=== PATIENT | female | born 1995 | race Two or more races ===

== ENCOUNTER 2024-05-16 12:36 | Outpatient (CLI) | payer OTHER ==
[~2024-05-16 12:36] MED LIST: FOLIC ACID0.4 MG PO; PRENATAL + DHA1 EAC1
== END 2024-05-16 12:37 | disposition home or self-care (01) ==
LOC: PRENATAL 12:36
PROVIDERS: ATTEND Obstetrics & Gynecology Maternal & Fetal Medicine
DX: O35.9XX0 Maternal care for (suspected) fetal abnormality and damage, unspecified, not applicable or unspecified (principal); O35.3XX0 Maternal care for (suspected) damage to fetus from viral disease in mother, not applicable or unspecified; O44.02 Complete placenta previa NOS or without hemorrhage, second trimester; Z3A.20 20 weeks gestation of pregnancy

== ENCOUNTER 2024-07-11 09:38 | Outpatient (CLI) | payer OTHER | END 2024-07-11 09:40 | disposition home or self-care (01) | LOC: PRENATAL 09:38 | PROVIDERS: ATTEND Obstetrics & Gynecology Maternal & Fetal Medicine | DX: O26.849 Uterine size-date discrepancy, unspecified trimester (principal); O44.00 Complete placenta previa NOS or without hemorrhage, unspecified trimester; Z3A.28 28 weeks gestation of pregnancy ==

== ENCOUNTER 2024-08-21 09:39 | Outpatient (CLI) | payer OTHER | END 2024-08-21 09:41 | disposition home or self-care (01) | LOC: PRENATAL 09:39 | PROVIDERS: ATTEND Obstetrics & Gynecology Maternal & Fetal Medicine | DX: O26.849 Uterine size-date discrepancy, unspecified trimester (principal); O36.8199 Decreased fetal movements, unspecified trimester, other fetus; Z3A.34 34 weeks gestation of pregnancy ==

== ENCOUNTER 2024-09-06 14:48 | Outpatient (CLI) | payer OTHER | END 2024-09-06 14:49 | disposition home or self-care (01) | LOC: PRENATAL 14:48 | PROVIDERS: ATTEND Obstetrics & Gynecology Maternal & Fetal Medicine | DX: O26.849 Uterine size-date discrepancy, unspecified trimester (principal); O36.8199 Decreased fetal movements, unspecified trimester, other fetus; Z3A.36 36 weeks gestation of pregnancy ==

== ENCOUNTER 2024-09-19 13:15 | Inpatient (IN) | payer OTHER ==
[~2024-09-19] VITALS: Ht 152.4 cm; Wt 83.0 kg
[2024-09-27] VITALS (10 sets, daily range): BP systolic 113–134; BP diastolic 45–79
[2024-09-27 13:58] LABS: HEMATOCRIT 37.7 % (36.0-45.00); HEMOGLOBIN 12.9 g/dL (12.0-15.00); MEAN CELL VOLUME 97.8 fL (80.00-100.00); MEAN CORPUSCULAR HEMOGLOBIN 33.5 pg (27.00-32.0); MEAN CORPUSCULAR HGB CONC 34.3 g/dl (32.0-36.0); PLATELET COUNT 343 K/uL (150-450); RED BLOOD COUNT 3.85 M/uL (4.00-6.00); RED CELL DISTRIBUTION WIDTH 12.4 % (11.5-14.5)
[2024-09-27 13:59] LABS: PH,URINE 5.5 (5.0-8.0); URINE APPEARANCE Clear; URINE BILIRRUBIN Negative (NEGATIVE); URINE BLOOD Trace; URINE COLOR Dark Yellow; URINE GLUCOSE Negative (NEGATIVE); URINE LEUKOCYTE Trace; URINE NITRATE Negative; URINE PROTEIN Trace (NEGATIVE)
[2024-09-27 14:00] LABS: URINE BACTERIA 737.9 uL (0.0-1933); URINE EPITHELIAL CELLS 28.9 uL (0.0-38.8); URINE RBC 6.6 uL (0.0-20.8); URINE WBC 18.1 uL (0.0-23.2)
[2024-09-27 14:12] LABS: URINE CAST 0.58 uL (0.0-1.40); URINE KETONE 80 (NEGATIVE)
[2024-09-27 14:14] LABS: URINE EPITHELIAL CELLS 0-4 /HPF
[2024-09-27] MEDS ORDERED: RINGERS SOLUTION,LACTATED 1,000 ML IV SCH (14:15)
[2024-09-27 14:21] LABS: INR 0.94; PARTIAL THROMBOPLASTIN TIME 29.7 SECONDS (22.0-34.0); PROTHROMBIN TIME 10.3 SECONDS (9.0-11.5)
[2024-09-27 14:36] LABS: ALBUMIN 3.3 gm/dL (3.4-5.0); BILIRUBIN TOTAL 0.91 mg/dL (0.3-1.2); CALCIUM 9.9 mg/dL (8.5-10.1); CREATININE SERUM 0.62 mg/dL (0.55-1.02); GFR 113.8; GLOBULINA 4.2 G/DL (2.4-3.5); POTASSIUM 4.21 mEq/L (3.5-5.1); TOTAL PROTEIN 7.5 gm/dL (6.4-8.2)
[2024-09-27] MEDS ORDERED: AMPICILLIN SODIUM 2,000 MG VIAL IV ONE (16:00)
[2024-09-27] MEDS ORDERED: OXYTOCIN 500 ML IV ONE (16:00)
[2024-09-27] MEDS ORDERED: MEPERIDINE HCL/PF 25 MG/ML VIAL IV ONE (17:00)
[2024-09-27] MEDS ORDERED: AMPICILLIN SODIUM 1,000 MG VIAL IV SCH (17:00)
[2024-09-27] MEDS ORDERED: PROMETHAZINE HCL 25 MG/ML AMPUL IV ONE (17:00)
[2024-09-27] MEDS ORDERED: ERYTHROMYCIN BASE OPHT 1GM EACH TUBE OP ONE (21:30)
[2024-09-27] MEDS ORDERED: CHLORHEXIDINE GLUCONATE 120 ML BOTTLE TOP SCH (21:30)
[2024-09-27] MEDS ORDERED: OXYTOCIN 1,000 ML IV SCH (21:30)
[2024-09-27] MEDS ORDERED: LIDOCAINE HCL 1% 10ML VIAL IJ ONE (21:30)
[2024-09-28] MEDS ORDERED: IBUprofen 400 MG TABLET PO SCH
[2024-09-28 03:45] VITALS: BP 113/72
[2024-09-28 04:38] LABS: HEMATOCRIT 32.8 % (36.0-45.00); MEAN CELL VOLUME 96.8 fL (80.00-100.00); MEAN CORPUSCULAR HGB CONC 34.6 g/dl (32.0-36.0); PLATELET COUNT 351 K/uL (150-450); RED BLOOD COUNT 3.38 M/uL (4.00-6.00); RED CELL DISTRIBUTION WIDTH 12.6 % (11.5-14.5)
[2024-09-28 04:54] LABS: HEMOGLOBIN 11.4 g/dL (12.0-15.00); MEAN CORPUSCULAR HEMOGLOBIN 33.7 pg (27.00-32.0)
[2024-09-28 17:28] VITALS: BP 114/75
[2024-09-29 00:11] VITALS: BP 116/77
[2024-09-29 14:09] VITALS: BP 113/77
[2024-09-29 16:00] VITALS: BP 120/73
== END 2024-09-29 19:45 | disposition home or self-care (01) | DRG 805 ==
LOC: LDR 09-27 12:52 → OB/GYN 09-27 16:28
PROVIDERS: ADMIT Obstetrics & Gynecology; ATTEND Obstetrics & Gynecology
PROC: 10E0XZZ Delivery of Products of Conception, External Approach (ICD-10-PCS; principal; 2024-09-27)
PROC: 0UQG7ZZ Repair Vagina, Via Natural or Artificial Opening (ICD-10-PCS; 2024-09-27)
PROC: 4A1HXCZ Monitoring of Products of Conception, Cardiac Rate, External Approach (ICD-10-PCS; 2024-09-27)
DX: O71.4 Obstetric high vaginal laceration alone (principal); O41.1230 Chorioamnionitis, third trimester, not applicable or unspecified; Z37.0 Single live birth; Z3A.39 39 weeks gestation of pregnancy; Z20.822 Contact with and (suspected) exposure to COVID-19